=== PATIENT | male | born 1960 | race Caucasian/White ===

== ENCOUNTER 2017-11-16 01:55 | Inpatient (IN) | payer OTHER ==
[~2017-11-16] VITALS: Ht 177.8 cm; Wt 97.1 kg
[2017-11-16] MEDS ORDERED: methylPREDNISolone SOD SUCC 125 MG/2 ML ONE (02:12)
[2017-11-16 02:17] LABS: MEAN CORPUSCULAR HGB CONC 32.8 g/dL (33.2-36.2); MEAN CORPUSCULAR VOLUME 100.8 fL (81-97); MEAN PLATELET VOLUME 9.1 fL (7.4-10.4); PLATELET COUNT 309 x10^3/uL (130-400); RED BLOOD COUNT 4.89 x10^6/uL (4.38-5.82); RED CELL DISTRIBUTION WIDTH 13.6 % (9.4-14.8)
[2017-11-16 02:26] LABS: INTERNATIONAL NORMALIZED RATIO 0.96 (0.93-1.1)
[2017-11-16 02:29] LABS: ALANINE AMINOTRANSFERASE 65 U/L (12-78); ALBUMIN 3.7 g/dL (3.4-5.0); ANION GAP 11 mmol/L (5-15); CALCIUM 8.6 mg/dL (8.5-10.1); CHLORIDE 99 mmol/L (98-107); CREATININE 1.51 mg/dL (0.7-1.3)
[2017-11-16] MEDS ORDERED: SODIUM CHLORIDE 0.9% 1,000ML IVBOLUS ONE ×2 (02:30→03:00)
[2017-11-16] MEDS ORDERED: SODIUM CHLORIDE FLUSH 10ML SYR IVF ONE (02:30)
[2017-11-16] MEDS ORDERED: methylPREDNISolone SOD SUCC 125 MG/2 ML IVP ONE (02:30)
[2017-11-16 02:33] LABS: ALKALINE PHOSPHATASE 82 U/L (45-117); BILIRUBIN,TOTAL 0.4 mg/dL (0.2-1.0); TOTAL PROTEIN 8.3 g/dL (6.4-8.2)
[2017-11-16 02:41] LABS: MD YES
[2017-11-16 02:44] LABS: BAND#(MANUAL) 0.34 x10^3/uL; BANDS%(MANUAL) 2 % (0-7); BASOS#(MANUAL) 0.17 x10^3/uL (0-0.1); BASOS% (MANUAL) 1 % (0-1); EOS#(MANUAL) 0.17 x10^3/uL (0.0-0.4); EOS% (MANUAL) 1 % (1-7); LYMPH#(MANUAL) 3.06 x10^3/uL (1-3.4); LYMPHS% (MANUAL) 18 % (22-44); MONOS#(MANUAL) 1.02 x10^3/uL (0.3-2.7); MONOS% (MANUAL) 6 % (2-9); SEG#(MANUAL) 12.24 x10^3/uL (1.8-6.8); SEGS% (MANUAL) 72 % (42-75)
[2017-11-16 02:45] LABS: <PLATELET ESTIMATE> ADEQUATE; ANISOCYTOSIS 1+; LARGE PLATELETS 1+
[2017-11-16] MEDS ORDERED: PROPOFOL 100 ML IV PRN ×2 (02:45→03:41)
[2017-11-16] MEDS ORDERED: MIDAZOLAM 1 MG/ML, 2ML ONE ×2 (02:50→05:07)
[2017-11-16] MEDS ORDERED: AZITHROMYCIN 500 MG in SODIUM CHLORIDE 0.9% 250 ML IVPB ONE (03:00)
[2017-11-16] MEDS ORDERED: CEFTRIAXONE PMX 1GM/50ML 50 ML IVPB ONE (03:00)
[2017-11-16] MEDS ORDERED: SUCCINYLCHOLINE 20 MG/ML, 10ML IVPush ONE (03:00)
[2017-11-16] MEDS ORDERED: SODIUM CHLORIDE 0.9% 1,000 ML IV ONE (03:00)
[2017-11-16] MEDS ORDERED: ETOMIDATE 20 MG/10 ML IV ONE (03:00)
[2017-11-16] MEDS ORDERED: ASPIRIN 300 MG SUPP PR ONE (03:30)
[2017-11-16] MEDS ORDERED: LIDOCAINE-MPF 1%, 2ML ENDO PRN (04:00)
[2017-11-16] MEDS ORDERED: AZITHROMYCIN 500 MG in SODIUM CHLORIDE 0.9% 250 ML IV SCH (04:00)
[2017-11-16] MEDS: MIDAZOLAM 1 MG/ML, 5ML IVPush PRN ×2 (04:00→05:00)
[2017-11-16] MEDS ORDERED: SENNOSIDES 8.8 MG/5 ML ORAL SOL NG PRN (04:00)
[2017-11-16] MEDS ORDERED: SENNA/DOCUSATE TABLET NG PRN (04:00)
[2017-11-16] MEDS ORDERED: LACTULOSE 20 GM/30 ML UDC NG PRN (04:00)
[2017-11-16] MEDS ORDERED: PHARMACY MAY ADJ FOR RENAL FX MC SCH (04:00)
[2017-11-16] MEDS ORDERED: BISACODYL 10 MG SUPP PR PRN (04:00)
[2017-11-16] MEDS ORDERED: CEFTRIAXONE PMX 1GM/50ML 50 ML ONE (04:01)
[2017-11-16] MEDS: methylPREDNISolone SOD SUCC 125 MG/2 ML IV SCH ×4 (05:08→21:55)
[2017-11-16] MEDS ORDERED: ACETAMINOPHEN 325 MG TABLET PO PRN (05:30)
[2017-11-16 05:55] VITALS: BP 105/69
[2017-11-16 06:45] LABS: TROPONIN I 0.282 ng/mL (0.000-0.045)
[2017-11-16] MEDS ORDERED: PROPOFOL 10 MG/ML, 100ML IV ONE (08:00)
[2017-11-16] MEDS ORDERED: MIDAZOLAM 1 MG/ML, 5ML ONE (08:00)
[2017-11-16] MEDS ORDERED: ETOMIDATE 20 MG/10 ML ONE (08:00)
[2017-11-16] MEDS: ALBUTEROL/IPRATROPIUM 2.5MG/0.5MG, 3 ML INLINE SCH ×5 (08:00→22:41)
[2017-11-16] MEDS ORDERED: PROPOFOL 10 MG/ML, 20ML ONE (08:00)
[2017-11-16] MEDS ORDERED: SUCCINYLCHOLINE 20 MG/ML, 10ML ONE (08:00)
[2017-11-16] MEDS ORDERED: ALBUTEROL/IPRATROPIUM 2.5MG/0.5MG, 3 ML INLINE PRN (08:00)
[2017-11-16 09:05] LABS: THYROID STIMULATING HORMONE 0.839 mIU/L (0.358-3.740)
[2017-11-16] MEDS ORDERED: LOSA100T6 PO (09:32)
[2017-11-16] MEDS ORDERED: ASPI-515 PO (09:32)
[2017-11-16] MEDS ORDERED: ALBU8.5H8 INH (09:32)
[2017-11-16] MEDS ORDERED: L.AC1CAP6 PO (09:32)
[2017-11-16] MEDS ORDERED: UMEC1DIS INH (09:32)
[2017-11-16] MEDS ORDERED: METH4TAB6 PO (09:32)
[2017-11-16] MEDS ORDERED: AMOX1TAB64 PO (09:32)
[2017-11-16] MEDS: FAMOTIDINE 20 MG/2 ML IVPush SCH ×2 (10:26→20:28)
[2017-11-16] MEDS: ENOXAPARIN 40 MG/0.4 ML SQ SCH (10:26)
[2017-11-16] MEDS: MIDAZOLAM HCL 25 MG in SODIUM CHLORIDE 0.9% 245 ML IV PRN ×2 (10:27→21:56)
[2017-11-16 11:25] LABS: TROPONIN I 0.279 ng/mL (0.000-0.045)
[2017-11-17] MEDS: ALBUTEROL/IPRATROPIUM 2.5MG/0.5MG, 3 ML INLINE SCH ×6 (02:59→23:10)
[2017-11-17] MEDS: CEFTRIAXONE 1,000 MG in DEXTROSE 5% 50 ML IVPB SCH (03:54)
[2017-11-17] MEDS: MIDAZOLAM HCL 25 MG in SODIUM CHLORIDE 0.9% 245 ML IV PRN ×4 (03:54→21:16)
[2017-11-17] MEDS: methylPREDNISolone SOD SUCC 125 MG/2 ML IV SCH ×4 (03:58→22:22)
[2017-11-17 04:30] VITALS: BP 139/92
[2017-11-17] MEDS: AZITHROMYCIN 500 MG in SODIUM CHLORIDE 0.9% 250 ML IV SCH (04:45)
[2017-11-17 04:46] LABS: ANION GAP 9 mmol/L (5-15); CALCIUM 8.1 mg/dL (8.5-10.1); CHLORIDE 106 mmol/L (98-107)
[2017-11-17 04:47] LABS: CREATININE 1.47 mg/dL (0.7-1.3)
[2017-11-17 04:48] LABS: BASOPHILS % (AUTO) 0 % (0-1); EOSINOPHILS % (AUTO) 0 % (1-7); LYMPHOCYTES # (AUTO) 0.41 x10^3/uL (1-3.4); LYMPHOCYTES % (AUTO) 7 % (22-44); MD NO; MEAN CORPUSCULAR HEMOGLOBIN 33.4 pg (27.5-34.5); MEAN CORPUSCULAR HGB CONC 33.1 g/dL (33.2-36.2); MEAN PLATELET VOLUME 9.4 fL (7.4-10.4); MONOCYTES # (AUTO) 0.44 x10^3/uL (0.2-0.8); MONOCYTES % (AUTO) 7 % (2-9); NEUTROPHILS # (AUTO) 5.47 x10^3/uL (1.8-6.8); NEUTROPHILS % (AUTO) 87 % (42-75); PLATELET COUNT 175 x10^3/uL (130-400); RED BLOOD COUNT 4.07 x10^6/uL (4.38-5.82); RED CELL DISTRIBUTION WIDTH 13.5 % (9.4-14.8)
[2017-11-17] MEDS: FAMOTIDINE 20 MG/2 ML IVPush SCH ×2 (10:36→21:16)
[2017-11-17] MEDS: ENOXAPARIN 40 MG/0.4 ML SQ SCH (10:36)
[2017-11-17] MEDS: MULTIVITAMINS WITH IRON TABLET PO SCH (10:37)
[2017-11-17] MEDS ORDERED: FUROSEMIDE 40 MG/4 ML IV ONE (12:30)
[2017-11-17] MEDS: FUROSEMIDE 40 MG/4 ML IV SCH (21:16)
[2017-11-18] MEDS: ALBUTEROL/IPRATROPIUM 2.5MG/0.5MG, 3 ML INLINE SCH ×2 (01:59→06:00)
[2017-11-18] MEDS: MIDAZOLAM HCL 25 MG in SODIUM CHLORIDE 0.9% 245 ML IV PRN (02:32)
[2017-11-18] MEDS: CEFTRIAXONE 1,000 MG in DEXTROSE 5% 50 ML IVPB SCH (04:02)
[2017-11-18] MEDS: methylPREDNISolone SOD SUCC 125 MG/2 ML IV SCH ×4 (04:05→21:16)
[2017-11-18] MEDS: AZITHROMYCIN 500 MG in SODIUM CHLORIDE 0.9% 250 ML IV SCH (04:53)
[2017-11-18 04:58] LABS: BASOPHILS # (AUTO) 0.01 x10^3/uL (0-0.1); BASOPHILS % (AUTO) 0 % (0-1); EOSINOPHILS % (AUTO) 0 % (1-7); LYMPHOCYTES # (AUTO) 0.37 x10^3/uL (1-3.4); LYMPHOCYTES % (AUTO) 5 % (22-44); MD NO; MEAN CORPUSCULAR HEMOGLOBIN 32.9 pg (27.5-34.5); MEAN CORPUSCULAR HGB CONC 32.9 g/dL (33.2-36.2); MEAN PLATELET VOLUME 9.6 fL (7.4-10.4); MONOCYTES # (AUTO) 0.32 x10^3/uL (0.2-0.8); MONOCYTES % (AUTO) 4 % (2-9); NEUTROPHILS # (AUTO) 7.04 x10^3/uL (1.8-6.8); NEUTROPHILS % (AUTO) 91 % (42-75); PLATELET COUNT 205 x10^3/uL (130-400); RED BLOOD COUNT 4.35 x10^6/uL (4.38-5.82); RED CELL DISTRIBUTION WIDTH 13.1 % (9.4-14.8)
[2017-11-18 05:10] LABS: ANION GAP 10 mmol/L (5-15); CALCIUM 8.2 mg/dL (8.5-10.1); CHLORIDE 104 mmol/L (98-107)
[2017-11-18 05:12] LABS: CREATININE 1.51 mg/dL (0.7-1.3)
[2017-11-18] MEDS: ENOXAPARIN 40 MG/0.4 ML SQ SCH (08:26)
[2017-11-18] MEDS: FAMOTIDINE 20 MG/2 ML IVPush SCH ×2 (08:26→21:16)
[2017-11-18] MEDS: FUROSEMIDE 40 MG/4 ML IV SCH ×2 (08:26→16:27)
[2017-11-18] MEDS: MULTIVITAMINS WITH IRON TABLET PO SCH (08:26)
[2017-11-18] MEDS ORDERED: ALBUTEROL/IPRATROPIUM 2.5MG/0.5MG, 3 ML NPPB PRN (11:00)
[2017-11-18] MEDS ORDERED: hydrALAzine 20 MG/ML, 1ML ONE (13:25)
[2017-11-18] MEDS: ALBUTEROL/IPRATROPIUM 2.5MG/0.5MG, 3 ML NPPB SCH ×3 (14:00→22:00)
[2017-11-18] MEDS ORDERED: SODIUM CHLORIDE 0.9% IV ONE (14:30)
[2017-11-18] MEDS ORDERED: PHENOBARBITAL SODIUM IV ONE (14:30)
[2017-11-18] MEDS: hydrALAzine 20 MG/ML, 1ML IVPush PRN ×2 (14:47→19:30)
[2017-11-18] MEDS ORDERED: SODIUM CHLORIDE 0.9% IV PRN (17:30)
[2017-11-18] MEDS ORDERED: PHENOBARBITAL SODIUM IV PRN (17:30)
[2017-11-18] MEDS: LABETALOL 5MG/ML, 20ML IVPush PRN ×2 (17:36→21:36)
[2017-11-18] MEDS: PHENOBARBITAL 20 MG/5 ML ORAL SOL PO SCH (21:35)
[2017-11-19] MEDS: methylPREDNISolone SOD SUCC 125 MG/2 ML IV SCH ×3 (04:24→20:42)
[2017-11-19] MEDS: CEFTRIAXONE 1,000 MG in DEXTROSE 5% 50 ML IVPB SCH (04:24)
[2017-11-19] MEDS: LABETALOL 5MG/ML, 20ML IVPush PRN (04:31)
[2017-11-19 04:35] LABS: BASOPHILS % (AUTO) 0 % (0-1); EOSINOPHILS % (AUTO) 0 % (1-7); LYMPHOCYTES % (AUTO) 6 % (22-44); MD NO; MEAN CORPUSCULAR HEMOGLOBIN 33.7 pg (27.5-34.5); MEAN CORPUSCULAR HGB CONC 33.7 g/dL (33.2-36.2); MEAN CORPUSCULAR VOLUME 100.2 fL (81-97); MEAN PLATELET VOLUME 9.6 fL (7.4-10.4); MONOCYTES # (AUTO) 0.51 x10^3/uL (0.2-0.8); MONOCYTES % (AUTO) 6 % (2-9); NEUTROPHILS # (AUTO) 7.35 x10^3/uL (1.8-6.8); NEUTROPHILS % (AUTO) 88 % (42-75); PLATELET COUNT 203 x10^3/uL (130-400); RED BLOOD COUNT 4.54 x10^6/uL (4.38-5.82); RED CELL DISTRIBUTION WIDTH 13.6 % (9.4-14.8)
[2017-11-19 04:39] LABS: ANION GAP 6 mmol/L (5-15); CALCIUM 8.8 mg/dL (8.5-10.1); CHLORIDE 103 mmol/L (98-107); CREATININE 1.38 mg/dL (0.7-1.3); TRIGLYCERIDES 792 mg/dL (50-200)
[2017-11-19] MEDS: AZITHROMYCIN 500 MG in SODIUM CHLORIDE 0.9% 250 ML IV SCH (05:23)
[2017-11-19] MEDS: ALBUTEROL/IPRATROPIUM 2.5MG/0.5MG, 3 ML NPPB SCH (06:00)
[2017-11-19] MEDS: FOLIC ACID 1 MG TABLET PO SCH (09:29)
[2017-11-19] MEDS: THIAMINE 100MG TABLET PO SCH (09:29)
[2017-11-19] MEDS: FAMOTIDINE 20 MG/2 ML IVPush SCH ×2 (09:29→20:42)
[2017-11-19] MEDS: MULTIVITAMINS WITH IRON TABLET PO SCH (09:29)
[2017-11-19] MEDS: FUROSEMIDE 40 MG/4 ML IV SCH (09:29)
[2017-11-19] MEDS: ENOXAPARIN 40 MG/0.4 ML SQ SCH (09:30)
[2017-11-19] MEDS: PHENOBARBITAL 20 MG/5 ML ORAL SOL PO SCH ×2 (09:30→20:43)
[2017-11-19 10:53] VITALS: BP 168/94
[2017-11-19 18:27] VITALS: BP 164/81
[2017-11-19] MEDS: DIPHENHYDRAMINE 25 MG CAPSULE PO PRN (20:43)
[2017-11-20] VITALS (7 sets, daily range): BP systolic 132–170; BP diastolic 77–110
[2017-11-20] MEDS: CEFTRIAXONE 1,000 MG in DEXTROSE 5% 50 ML IVPB SCH (04:12)
[2017-11-20] MEDS: AZITHROMYCIN 500 MG in SODIUM CHLORIDE 0.9% 250 ML IV SCH (05:13)
[2017-11-20] MEDS: hydrALAzine 20 MG/ML, 1ML IVPush PRN (05:13)
[2017-11-20 05:48] LABS: ALBUMIN 2.9 g/dL (3.4-5.0); ANION GAP 6 mmol/L (5-15); CALCIUM 8.4 mg/dL (8.5-10.1); CHLORIDE 102 mmol/L (98-107)
[2017-11-20 05:52] LABS: ALANINE AMINOTRANSFERASE 42 U/L (12-78); ALKALINE PHOSPHATASE 56 U/L (45-117); BILIRUBIN,TOTAL 0.7 mg/dL (0.2-1.0); CREATININE 1.24 mg/dL (0.7-1.3); TOTAL PROTEIN 7.2 g/dL (6.4-8.2)
[2017-11-20 05:56] LABS: BASOPHILS # (AUTO) 0.02 x10^3/uL (0-0.1); BASOPHILS % (AUTO) 0 % (0-1); EOSINOPHILS # (AUTO) 0.01 x10^3/uL (0-0.4); EOSINOPHILS % (AUTO) 0 % (1-7); LYMPHOCYTES % (AUTO) 14 % (22-44); MD NO; MEAN CORPUSCULAR HEMOGLOBIN 33.7 pg (27.5-34.5); MEAN CORPUSCULAR HGB CONC 33.5 g/dL (33.2-36.2); MEAN CORPUSCULAR VOLUME 100.7 fL (81-97); MEAN PLATELET VOLUME 9.7 fL (7.4-10.4); MONOCYTES # (AUTO) 0.84 x10^3/uL (0.2-0.8); MONOCYTES % (AUTO) 10 % (2-9); NEUTROPHILS # (AUTO) 6.59 x10^3/uL (1.8-6.8); NEUTROPHILS % (AUTO) 76 % (42-75); PLATELET COUNT 195 x10^3/uL (130-400); RED BLOOD COUNT 4.84 x10^6/uL (4.38-5.82); RED CELL DISTRIBUTION WIDTH 13.2 % (9.4-14.8)
[2017-11-20] MEDS ORDERED: PHENOBARBITAL 30 MG TABLET ONE (08:35)
[2017-11-20] MEDS: PHENOBARBITAL 20 MG/5 ML ORAL SOL PO SCH ×2 (09:00→21:14)
[2017-11-20] MEDS ORDERED: REGADENOSON 0.4 MG/5 ML SYRINGE ONE (09:08)
[2017-11-20] MEDS ORDERED: AMINOPHYLLINE 25 MG/ML, 10ML ONE (09:15)
[2017-11-20] MEDS: THIAMINE 100MG TABLET PO SCH (09:59)
[2017-11-20] MEDS: methylPREDNISolone SOD SUCC 125 MG/2 ML IV SCH ×2 (09:59→21:14)
[2017-11-20] MEDS: MULTIVITAMINS WITH IRON TABLET PO SCH (09:59)
[2017-11-20] MEDS: FOLIC ACID 1 MG TABLET PO SCH (10:00)
[2017-11-20] MEDS: ENOXAPARIN 40 MG/0.4 ML SQ SCH (10:01)
[2017-11-20] MEDS: FUROSEMIDE 20 MG TABLET PO SCH (10:06)
[2017-11-20] MEDS: METOPROLOL TARTRATE 25 MG TABLET PO SCH (18:08)
[2017-11-20] MEDS: DIPHENHYDRAMINE 25 MG CAPSULE PO PRN (21:14)
[2017-11-21] VITALS (8 sets, daily range): BP systolic 119–165; BP diastolic 71–98
[2017-11-21] MEDS: CEFTRIAXONE 1,000 MG in DEXTROSE 5% 50 ML IVPB SCH (04:03)
[2017-11-21] MEDS: METOPROLOL TARTRATE 25 MG TABLET PO SCH ×2 (05:44→17:37)
[2017-11-21] MEDS: AZITHROMYCIN 500 MG in SODIUM CHLORIDE 0.9% 250 ML IV SCH (05:44)
[2017-11-21] MEDS: methylPREDNISolone SOD SUCC 125 MG/2 ML IV SCH ×2 (09:16→20:06)
[2017-11-21] MEDS: MULTIVITAMINS WITH IRON TABLET PO SCH (09:17)
[2017-11-21] MEDS: FOLIC ACID 1 MG TABLET PO SCH (09:17)
[2017-11-21] MEDS: FUROSEMIDE 20 MG TABLET PO SCH (09:17)
[2017-11-21] MEDS: ENOXAPARIN 40 MG/0.4 ML SQ SCH (09:17)
[2017-11-21] MEDS: PHENOBARBITAL 20 MG/5 ML ORAL SOL PO SCH ×2 (10:40→20:07)
[2017-11-21] MEDS: THIAMINE 100MG TABLET PO SCH (10:41)
[2017-11-21] MEDS: DIPHENHYDRAMINE 25 MG CAPSULE PO PRN (20:07)
[2017-11-22] VITALS (8 sets, daily range): BP systolic 132–162; BP diastolic 77–94
[2017-11-22] MEDS: CEFTRIAXONE 1,000 MG in DEXTROSE 5% 50 ML IVPB SCH (04:28)
[2017-11-22] MEDS: AZITHROMYCIN 500 MG in SODIUM CHLORIDE 0.9% 250 ML IV SCH (05:36)
[2017-11-22] MEDS: METOPROLOL TARTRATE 25 MG TABLET PO SCH ×2 (05:37→18:00)
[2017-11-22] MEDS ORDERED: REGADENOSON 0.4 MG/5 ML SYRINGE ONE (08:04)
[2017-11-22] MEDS: PHENOBARBITAL 20 MG/5 ML ORAL SOL PO SCH ×2 (11:36→19:58)
[2017-11-22] MEDS: THIAMINE 100MG TABLET PO SCH (11:36)
[2017-11-22] MEDS: FUROSEMIDE 20 MG TABLET PO SCH (11:37)
[2017-11-22] MEDS: ENOXAPARIN 40 MG/0.4 ML SQ SCH (11:37)
[2017-11-22] MEDS: FOLIC ACID 1 MG TABLET PO SCH (11:37)
[2017-11-22] MEDS: MULTIVITAMINS WITH IRON TABLET PO SCH (11:37)
[2017-11-22] MEDS: methylPREDNISolone SOD SUCC 125 MG/2 ML IV SCH (11:37)
[2017-11-22] MEDS: methylPREDNISolone SOD SUCC 40 MG/ML IV SCH ×2 (19:58→20:30)
[2017-11-22] MEDS: DIPHENHYDRAMINE 25 MG CAPSULE PO PRN (19:58)
[2017-11-23] MEDS: CEFTRIAXONE 1,000 MG in DEXTROSE 5% 50 ML IVPB SCH (04:29)
[2017-11-23 04:31] VITALS: BP 161/101
[2017-11-23] MEDS: AZITHROMYCIN 500 MG in SODIUM CHLORIDE 0.9% 250 ML IV SCH (05:31)
[2017-11-23] MEDS: METOPROLOL TARTRATE 25 MG TABLET PO SCH (05:31)
[2017-11-23 05:45] LABS: ANION GAP 3 mmol/L (5-15); CALCIUM 8.6 mg/dL (8.5-10.1); CHLORIDE 104 mmol/L (98-107)
[2017-11-23 05:51] LABS: CREATININE 0.99 mg/dL (0.7-1.3)
[2017-11-23 08:55] VITALS: BP 158/84
[2017-11-23 09:00] VITALS: BP_SYST 134; BP_SYST 152; BP_DIAS 86; BP_DIAS 94
[2017-11-23] MEDS ORDERED: FENOFIBRATE 145 MG TABLET PO SCH (09:00)
[2017-11-23] MEDS ORDERED: SODIUM CHLORIDE 0.9% 1,000 ML IV SCH (09:00)
[2017-11-23] MEDS: FOLIC ACID 1 MG TABLET PO SCH (09:23)
[2017-11-23] MEDS: PHENOBARBITAL 20 MG/5 ML ORAL SOL PO SCH ×2 (09:23→20:19)
[2017-11-23] MEDS: MULTIVITAMINS WITH IRON TABLET PO SCH (09:23)
[2017-11-23] MEDS: FUROSEMIDE 20 MG TABLET PO SCH (09:23)
[2017-11-23] MEDS: LISINOPRIL 10 MG TABLET PO SCH ×2 (09:24→20:19)
[2017-11-23] MEDS: methylPREDNISolone SOD SUCC 40 MG/ML IV SCH ×2 (09:37→20:19)
[2017-11-23] MEDS: CARVEDILOL 6.25 MG TABLET PO SCH ×2 (09:37→17:10)
[2017-11-23] MEDS ORDERED: MIDAZOLAM 1 MG/ML, 5ML ONE (10:57)
[2017-11-23] MEDS ORDERED: VERAPAMIL 2.5 MG/ML, 2ML ONE (10:57)
[2017-11-23] MEDS ORDERED: FENTANYL PF 100 MCG/2ML ONE (10:57)
[2017-11-23] MEDS ORDERED: TICAGRELOR 90 MG TABLET ONE (10:57)
[2017-11-23] MEDS ORDERED: NITROGLYCERIN 5 MG/ML, 10ML ONE (10:58)
[2017-11-23] MEDS ORDERED: BIVALIRUDIN 250 MG ONE ×2 (10:58→12:51)
[2017-11-23] MEDS ORDERED: LIDOCAINE 2%, 20ML ONE (10:58)
[2017-11-23] MEDS ORDERED: HEPARIN 1,000 UNITS/ML, 10ML ONE (10:58)
[2017-11-23] MEDS ORDERED: DIPHENHYDRAMINE 50 MG/ML, 1ML IVPush ONE (11:00)
[2017-11-23] MEDS ORDERED: DIPHENHYDRAMINE 50 MG/ML, 1ML ONE (11:16)
[2017-11-23] MEDS ORDERED: ASPIRIN 325 MG TABLET EC ONE (12:58)
[2017-11-23] MEDS ORDERED: ACETAMINOPHEN 325 MG TABLET PO PRN (13:00)
[2017-11-23] MEDS: THIAMINE 100MG TABLET PO SCH (13:20)
[2017-11-23 13:30] VITALS: BP 124/87
[2017-11-23 14:25] VITALS: BP 124/87
[2017-11-23 19:20] VITALS: BP_SYST 143; BP_SYST 154; BP_SYST 95; BP_DIAS 63; BP_DIAS 81; BP_DIAS 85
[2017-11-23] MEDS ORDERED: PHENOBARBITAL 100 MG TABLET ONE (19:54)
[2017-11-23] MEDS: DIPHENHYDRAMINE 25 MG CAPSULE PO PRN (20:19)
[2017-11-23] MEDS: ATORVASTATIN 40 MG TABLET PO SCH (20:19)
[2017-11-24 02:10] VITALS: BP 133/78
[2017-11-24] MEDS: CEFTRIAXONE 1,000 MG in DEXTROSE 5% 50 ML IVPB SCH (04:18)
[2017-11-24] MEDS ORDERED: FLU VACC QS2017-18 (36MOS+) UP/PF 0.5 ML IM-VACC ONE (04:30)
[2017-11-24 05:17] LABS: CHOL/HDL RATIO 10.1; CHOLESTEROL, TOTAL 332 mg/dL (140-239); HDL CHOL % 10 % (26-37); HDL CHOLESTEROL (DIRECT) 33 mg/dL (40-60); TRIGLYCERIDES 790 mg/dL (50-200)
[2017-11-24 05:34] LABS: HEMOGLOBIN A1C 6.7 % (4.2-6.3)
[2017-11-24] MEDS: AZITHROMYCIN 500 MG in SODIUM CHLORIDE 0.9% 250 ML IV SCH (05:40)
[2017-11-24] MEDS: CARVEDILOL 6.25 MG TABLET PO SCH ×2 (05:40→17:31)
[2017-11-24 07:53] VITALS: BP 126/67
[2017-11-24] MEDS: TICAGRELOR 90 MG TABLET PO SCH ×2 (08:05→19:57)
[2017-11-24] MEDS: FOLIC ACID 1 MG TABLET PO SCH (08:05)
[2017-11-24] MEDS: MULTIVITAMINS WITH IRON TABLET PO SCH (08:05)
[2017-11-24] MEDS: LISINOPRIL 10 MG TABLET PO SCH ×2 (08:05→19:57)
[2017-11-24] MEDS: FUROSEMIDE 20 MG TABLET PO SCH (08:05)
[2017-11-24] MEDS: ASPIRIN 81 MG TABLET EC PO SCH (08:05)
[2017-11-24] MEDS: methylPREDNISolone SOD SUCC 40 MG/ML IV SCH ×2 (08:05→19:57)
[2017-11-24] MEDS: PHENOBARBITAL 20 MG/5 ML ORAL SOL PO SCH (10:34)
[2017-11-24] MEDS ORDERED: CLOPIDOGREL 75 MG TABLET PO SCH (12:00)
[2017-11-24] MEDS: THIAMINE 100MG TABLET PO SCH (13:29)
[2017-11-24] MEDS: ENOXAPARIN 40 MG/0.4 ML SQ SCH (13:30)
[2017-11-24 14:11] VITALS: BP_SYST 161; BP_SYST 162; BP_DIAS 89; BP_DIAS 91
[2017-11-24 19:44] VITALS: BP_SYST 124; BP_SYST 127; BP_DIAS 72; BP_DIAS 83
[2017-11-24 19:46] VITALS: BP 126/76
[2017-11-24] MEDS: ATORVASTATIN 40 MG TABLET PO SCH (19:57)
[2017-11-24] MEDS: DIPHENHYDRAMINE 25 MG CAPSULE PO PRN (20:02)
[2017-11-24] MEDS ORDERED: ATOR40TA78 PO (20:14)
[2017-11-24] MEDS ORDERED: TICA90TA PO (20:14)
[2017-11-24] MEDS ORDERED: FURO20TA3 PO (20:14)
[2017-11-24] MEDS ORDERED: CARV6.2512 PO (20:14)
[2017-11-25 02:46] VITALS: BP 160/93
[2017-11-25 06:48] VITALS: BP 148/68
[2017-11-25] MEDS: ENOXAPARIN 40 MG/0.4 ML SQ SCH (07:15)
[2017-11-25] MEDS: CARVEDILOL 6.25 MG TABLET PO SCH ×2 (07:21→16:16)
[2017-11-25] MEDS: ASPIRIN 81 MG TABLET EC PO SCH (07:21)
[2017-11-25] MEDS: FOLIC ACID 1 MG TABLET PO SCH (07:21)
[2017-11-25] MEDS: LISINOPRIL 10 MG TABLET PO SCH (07:21)
[2017-11-25] MEDS: FUROSEMIDE 20 MG TABLET PO SCH (07:21)
[2017-11-25] MEDS: THIAMINE 100MG TABLET PO SCH (07:22)
[2017-11-25] MEDS: TICAGRELOR 90 MG TABLET PO SCH (07:23)
[2017-11-25] MEDS: MULTIVITAMINS WITH IRON TABLET PO SCH (07:31)
[2017-11-25] MEDS ORDERED: methylPREDNISolone SOD SUCC 40 MG/ML IV SCH (09:00)
[2017-11-25 16:00] VITALS: BP 148/78
== END 2017-11-25 17:17 | disposition home or self-care (01) | DRG 853 ==
LOC: ED 02:59 → EDIP 03:29 → CCU 04:40 → 3NE 11-19 10:36 → 5SO 11-23 10:35
PROVIDERS: ADMIT Hospitalist; ATTEND Hospitalist
PROC: 5A1945Z Respiratory Ventilation, 24-96 Consecutive Hours (ICD-10-PCS; 2017-11-16)
PROC: 5A09357 Assistance with Respiratory Ventilation, Less than 24 Consecutive Hours, Continuous Positive Airway Pressure (ICD-10-PCS; 2017-11-16)
PROC: 0BH17EZ Insertion of Endotracheal Airway into Trachea, Via Natural or Artificial Opening (ICD-10-PCS; 2017-11-16)
PROC: 02703DZ Dilation of Coronary Artery, One Artery with Intraluminal Device, Percutaneous Approach (ICD-10-PCS; principal; 2017-11-23)
PROC: 4A023N8 Measurement of Cardiac Sampling and Pressure, Bilateral, Percutaneous Approach (ICD-10-PCS; 2017-11-23)
PROC: B2111ZZ Fluoroscopy of Multiple Coronary Arteries using Low Osmolar Contrast (ICD-10-PCS; 2017-11-23)
PROC: B2151ZZ Fluoroscopy of Left Heart using Low Osmolar Contrast (ICD-10-PCS; 2017-11-23)
DX: A41.9 Sepsis, unspecified organism (principal); I21.4 Non-ST elevation (NSTEMI) myocardial infarction; J96.21 Acute and chronic respiratory failure with hypoxia; I50.23 Acute on chronic systolic (congestive) heart failure; N17.0 Acute kidney failure with tubular necrosis; I11.0 Hypertensive heart disease with heart failure; J15.9 Unspecified bacterial pneumonia; Z99.11 Dependence on respirator [ventilator] status; J96.22 Acute and chronic respiratory failure with hypercapnia; E87.2 Acidosis; F10.239 Alcohol dependence with withdrawal, unspecified; J44.0 Chronic obstructive pulmonary disease with (acute) lower respiratory infection; J44.1 Chronic obstructive pulmonary disease with (acute) exacerbation; I27.20 Pulmonary hypertension, unspecified; D75.89 Other specified diseases of blood and blood-forming organs; E53.8 Deficiency of other specified B group vitamins; E66.9 Obesity, unspecified; E78.1 Pure hyperglyceridemia; E78.5 Hyperlipidemia, unspecified; F15.90 Other stimulant use, unspecified, uncomplicated; F17.210 Nicotine dependence, cigarettes, uncomplicated; I25.10 Atherosclerotic heart disease of native coronary artery without angina pectoris; I25.5 Ischemic cardiomyopathy; I34.0 Nonrheumatic mitral (valve) insufficiency; I70.0 Atherosclerosis of aorta; R65.20 Severe sepsis without septic shock; Z79.82 Long term (current) use of aspirin; Z80.1 Family history of malignant neoplasm of trachea, bronchus and lung; Z99.81 Dependence on supplemental oxygen; Z68.30 Body mass index [BMI] 30.0-30.9, adult
CPT/HCPCS: 31500; 36415; 36600; 71045; 78452; 80048; 80053; 80061; 82607; 82746; 82803; 83036; 83605; 83735; 83880; 84100; 84145; 84443; 84478; 84484; 85025; 85610; 85730; 87040; 87070; 87081; 87205; 90686; 92928; 93005; 93017; 93306; 93460; 94002; 94003; 94640; 94660; 96361; 96374; 96375; 99156; 99157; C1769; C1876; C1894; J0456; J0583; J0696; J1644; J1650; J1940; J2250; J2560; J2704; J2785; J3010; J3490; J7620; A9502; C1725; C1887; C9898; J0280; J0330; J0360; J1200; J2920; J2930; J7030; J7050; Q0163; Q9967; S0028

== ENCOUNTER 2018-01-21 19:58 | Inpatient (IN) | payer OTHER ==
[~2018-01-21] VITALS: Ht 182.9 cm; Wt 90.4 kg
[~2018-01-21 19:58] MED LIST: ALBU8.5H8 INH; AMOX1TAB64 PO; ASPI-515 PO; ATOR40TA78 PO; CARV6.2512 PO; FURO20TA3 PO; L.AC1CAP6 PO; LOSA100T6 PO; METH4TAB6 PO; TICA90TA PO; UMEC1DIS INH
[2018-01-21] MEDS ORDERED: GLUCAGON 1 MG ONE ×3 (20:12→21:12)
[2018-01-21] MEDS ORDERED: ONDANSETRON ODT 4 MG ONE (20:21)
[2018-01-21] MEDS ORDERED: ZIPRASIDONE 20 MG INJ IM ONE (20:24)
[2018-01-21] MEDS ORDERED: SODIUM CHLORIDE FLUSH 10ML SYR IVF ONE ×2 (20:30)
[2018-01-21] MEDS ORDERED: GLUCAGON 1 MG IVPush ONE (20:30)
[2018-01-21 20:31] LABS: BASOPHILS # (AUTO) 0.07 x10^3/uL (0-0.1); BASOPHILS % (AUTO) 1 % (0-1); EOSINOPHILS # (AUTO) 0.31 x10^3/uL (0-0.4); EOSINOPHILS % (AUTO) 3 % (1-7); LYMPHOCYTES # (AUTO) 3.58 x10^3/uL (1-3.4); LYMPHOCYTES % (AUTO) 38 % (22-44); MD NO; MEAN CORPUSCULAR HEMOGLOBIN 33.2 pg (27.5-34.5); MEAN CORPUSCULAR HGB CONC 33.5 g/dL (33.2-36.2); MEAN PLATELET VOLUME 8.9 fL (7.4-10.4); MONOCYTES # (AUTO) 0.59 x10^3/uL (0.2-0.8); MONOCYTES % (AUTO) 6 % (2-9); NEUTROPHILS # (AUTO) 4.78 x10^3/uL (1.8-6.8); NEUTROPHILS % (AUTO) 51 % (42-75); PLATELET COUNT 251 x10^3/uL (130-400); RED BLOOD COUNT 3.55 x10^6/uL (4.38-5.82); RED CELL DISTRIBUTION WIDTH 14.7 % (9.4-14.8)
[2018-01-21 20:41] LABS: ALANINE AMINOTRANSFERASE 33 U/L (12-78); ALBUMIN 3.1 g/dL (3.4-5.0); ANION GAP 10 mmol/L (5-15); CALCIUM 8.1 mg/dL (8.5-10.1); CHLORIDE 105 mmol/L (98-107); SALICYLATE LEVEL 2.2 mg/dL (2.8-20.0)
[2018-01-21] MEDS ORDERED: METF500T4 PO (20:42)
[2018-01-21 20:44] LABS: ALKALINE PHOSPHATASE 67 U/L (45-117); BILIRUBIN,TOTAL 0.4 mg/dL (0.2-1.0); CREATININE 1.27 mg/dL (0.7-1.3); TOTAL PROTEIN 6.5 g/dL (6.4-8.2)
[2018-01-21 20:47] LABS: ACETAMINOPHEN < 2 mcg/mL (10-30)
[2018-01-21] MEDS ORDERED: KETAMINE 100 MG/ML, 5ML IV ONE ×5 (21:00→23:30)
[2018-01-21] MEDS ORDERED: GLUCAGON IV ONE (21:00)
[2018-01-21] MEDS ORDERED: SUCCINYLCHOLINE 20 MG/ML, 10ML ONE (21:00)
[2018-01-21] MEDS ORDERED: SUCCINYLCHOLINE 20 MG/ML, 10ML IVPush ONE (21:00)
[2018-01-21] MEDS ORDERED: MIDAZOLAM 1 MG/ML, 5ML ONE (21:00)
[2018-01-21] MEDS ORDERED: DEXTROSE 5% IV ONE (21:00)
[2018-01-21] MEDS ORDERED: GLUCAGON 1 MG IVPush PRN ×2 (21:00→21:30)
[2018-01-21] MEDS ORDERED: SODIUM CHLORIDE 0.9% 1,000ML IVBOLUS ONE (21:00)
[2018-01-21] MEDS ORDERED: PROPOFOL 10 MG/ML, 100ML IV ONE (21:00)
[2018-01-21] MEDS ORDERED: ONDANSETRON ODT 4 MG PO ONE (21:00)
[2018-01-21] MEDS ORDERED: DEXMEDETOMIDINE 200 MCG in SODIUM CHLORIDE 0.9% 48 ML IV PRN (21:30)
[2018-01-21] MEDS ORDERED: PROPOFOL 100 ML IV PRN (22:14)
[2018-01-21] MEDS ORDERED: REGULAR INSULIN 62.5 UNITS in SODIUM CHLORIDE 0.9% 249.375 ML IV PRN (22:14)
[2018-01-21] MEDS ORDERED: DEXTROSE 50%, 50ML SYRINGE IVPush ONE (22:30)
[2018-01-21] MEDS ORDERED: INSULIN REGULAR 100 UNITS/ML, 3ML VIAL IVPush ONE (22:30)
[2018-01-21] MEDS ORDERED: SENNA/DOCUSATE TABLET NG PRN (22:30)
[2018-01-21] MEDS: NOREPINEPHRINE 4 MG in SODIUM CHLORIDE 0.9% 246 ML IV PRN ×2 (22:30→22:58)
[2018-01-21] MEDS ORDERED: PHARMACY MAY ADJ FOR RENAL FX MC SCH (22:30)
[2018-01-21] MEDS ORDERED: BISACODYL 10 MG SUPP PR PRN (22:30)
[2018-01-21] MEDS ORDERED: LACTULOSE 20 GM/30 ML UDC NG PRN (22:30)
[2018-01-21] MEDS ORDERED: SENNOSIDES 8.8 MG/5 ML ORAL SOL NG PRN (22:30)
[2018-01-21] MEDS ORDERED: LIDOCAINE-MPF 1%, 2ML ENDO PRN (22:30)
[2018-01-21] MEDS ORDERED: DEXTROSE 50%, 50ML SYRINGE ONE ×2 (22:56→23:29)
[2018-01-21] MEDS ORDERED: INSULIN REGULAR 100 UNITS/ML, 3ML VIAL ONE (22:59)
[2018-01-21] MEDS: DEXTROSE 10% 1,000 ML IV SCH (23:11)
[2018-01-21] MEDS ORDERED: POTASSIUM CHLORIDE 40 MEQ in SODIUM CHLORIDE 0.9% 100 ML IV ONE (23:30)
[2018-01-21] MEDS ORDERED: REGULAR INSULIN 250 UNITS in SODIUM CHLORIDE 0.9% 247.5 ML IV PRN (23:45)
[2018-01-21] MEDS: AMPICILLIN/SULBACTAM 3 GM in SODIUM CHLORIDE 0.9% 100 ML IV SCH (23:51)
[2018-01-22] MEDS ORDERED: BISACODYL 10 MG SUPP PR PRN
[2018-01-22] MEDS ORDERED: DOCUSATE 100 MG CAPSULE PO PRN
[2018-01-22] MEDS ORDERED: POLYETHYLENE GLYCOL 17 GM PACKET PO PRN
[2018-01-22] MEDS: MIDAZOLAM HCL 50 MG in SODIUM CHLORIDE 0.9% 240 ML IV PRN ×3 (00:20→18:41)
[2018-01-22] MEDS: SODIUM CHLORIDE 0.9% 1,000 ML IV SCH ×2 (00:33→07:39)
[2018-01-22] MEDS: NOREPINEPHRINE 4 MG in SODIUM CHLORIDE 0.9% 246 ML IV PRN (00:34)
[2018-01-22 01:00] VITALS: BP 72/41
[2018-01-22] MEDS ORDERED: KETAMINE 100 MG/ML, 5ML IV ONE (01:00)
[2018-01-22] MEDS: NOREPINEPHRINE 8 MG in SODIUM CHLORIDE 0.9% 242 ML IV PRN ×3 (01:21→09:53)
[2018-01-22 01:51] LABS: ANION GAP 13 mmol/L (5-15); CALCIUM 7.9 mg/dL (8.5-10.1); CHLORIDE 105 mmol/L (98-107)
[2018-01-22] MEDS ORDERED: VASOPRESSIN 100 UNIT in SODIUM CHLORIDE 0.9% 495 ML IV PRN (02:00)
[2018-01-22] MEDS ORDERED: REGULAR INSULIN 62.5 UNITS in SODIUM CHLORIDE 0.9% 249.375 ML IV PRN (02:30)
[2018-01-22 02:55] LABS: AMPHETAMINE SCREEN, URINE Negative (Negative); BARBITURATE SCREEN, URINE Negative (Negative); BENZODIAZEPINE SCREEN, URINE Positive (Negative); CANNABINOID SCREEN, URINE Negative (Negative); COCAINE SCREEN, URINE Negative (Negative); METHADONE SCREEN, URINE Negative (Negative); OPIATE SCREEN, URINE Negative (Negative)
[2018-01-22] MEDS ORDERED: POTASSIUM CHLORIDE 40 MEQ in SODIUM CHLORIDE 0.9% 100 ML IV ONE (03:00)
[2018-01-22] MEDS: AMPICILLIN/SULBACTAM 3 GM in SODIUM CHLORIDE 0.9% 100 ML IV SCH ×4 (03:39→22:02)
[2018-01-22 04:30] VITALS: BP 93/52
[2018-01-22] MEDS ORDERED: REGULAR INSULIN 250 UNITS in SODIUM CHLORIDE 0.9% 247.5 ML IV PRN ×2 (05:30→23:45)
[2018-01-22 06:23] LABS: BASOPHILS # (AUTO) 0.11 x10^3/uL (0-0.1); BASOPHILS % (AUTO) 1 % (0-1); EOSINOPHILS # (AUTO) 0.02 x10^3/uL (0-0.4); EOSINOPHILS % (AUTO) 0 % (1-7); LYMPHOCYTES # (AUTO) 1.97 x10^3/uL (1-3.4); LYMPHOCYTES % (AUTO) 17 % (22-44); MD NO; MEAN CORPUSCULAR HEMOGLOBIN 33.2 pg (27.5-34.5); MEAN CORPUSCULAR HGB CONC 33.6 g/dL (33.2-36.2); MEAN CORPUSCULAR VOLUME 98.8 fL (81-97); MEAN PLATELET VOLUME 8.9 fL (7.4-10.4); MONOCYTES # (AUTO) 0.66 x10^3/uL (0.2-0.8); MONOCYTES % (AUTO) 6 % (2-9); NEUTROPHILS # (AUTO) 8.79 x10^3/uL (1.8-6.8); NEUTROPHILS % (AUTO) 76 % (42-75); PLATELET COUNT 292 x10^3/uL (130-400); RED CELL DISTRIBUTION WIDTH 14.8 % (9.4-14.8)
[2018-01-22 06:31] LABS: ANION GAP 11 mmol/L (5-15); CALCIUM 7.7 mg/dL (8.5-10.1); CHLORIDE 108 mmol/L (98-107); CREATININE 1.53 mg/dL (0.7-1.3)
[2018-01-22] MEDS: DEXTROSE 10% 1,000 ML IV SCH ×2 (07:39→18:42)
[2018-01-22] MEDS ORDERED: MAGNESIUM SULFATE PMX 4GM/100M 100 ML IV ONE (08:00)
[2018-01-22 08:10] LABS: ALANINE AMINOTRANSFERASE 31 U/L (12-78); ALBUMIN 2.8 g/dL (3.4-5.0); BILIRUBIN, DIRECT 0.2 mg/dL (0.1-0.2)
[2018-01-22 08:12] LABS: ACETAMINOPHEN < 2 mcg/mL (10-30); ALKALINE PHOSPHATASE 61 U/L (45-117); BILIRUBIN,TOTAL 0.7 mg/dL (0.2-1.0); SALICYLATE LEVEL < 1.7 mg/dL (2.8-20.0); TOTAL PROTEIN 6.1 g/dL (6.4-8.2)
[2018-01-22 09:29] LABS: BILIRUBIN,INDIRECT 0.5 mg/dL (0.0-2.0)
[2018-01-22] MEDS ORDERED: DEXTROSE 50%, 50ML SYRINGE IVPush PRN (10:00)
[2018-01-22] MEDS ORDERED: [UNRECOGNIZED DRUG - REMARK] XX PRN ×2 (10:00→14:32)
[2018-01-22] MEDS ORDERED: DEXTROSE 4 GM TAB.CHEW PO PRN (10:00)
[2018-01-22] MEDS ORDERED: GLUCAGON 1 MG IM PRN (10:00)
[2018-01-22] MEDS ORDERED: DEXTROSE 50%, 50ML SYRINGE IVPush ONE (10:00)
[2018-01-22 10:01] LABS: ANION GAP 10 mmol/L (5-15); CALCIUM 7.5 mg/dL (8.5-10.1); CHLORIDE 107 mmol/L (98-107); CREATININE 1.49 mg/dL (0.7-1.3)
[2018-01-22] MEDS ORDERED: SODIUM CHLORIDE 0.9%, 500ML IVBOLUS ONE (10:30)
[2018-01-22 10:49] LABS: CLOSTRIDIUM DIFFICILE ANTIGEN NEGATIVE; CLOSTRIDIUM DIFFICILE TOXIN NEGATIVE (Negative)
[2018-01-22] MEDS: SODIUM CHLORIDE FLUSH 10ML SYR IVF SCH ×2 (10:59→22:02)
[2018-01-22] MEDS ORDERED: NOREPINEPHRINE 8 MG in SODIUM CHLORIDE 0.9% 242 ML IV PRN (14:30)
[2018-01-22] MEDS ORDERED: SODIUM CHLORIDE 0.9% 1,000 ML IV SCH (14:30)
[2018-01-22] MEDS ORDERED: DEXTROSE 10% 1,000 ML IV SCH (22:30)
[2018-01-23] MEDS: MIDAZOLAM HCL 50 MG in SODIUM CHLORIDE 0.9% 240 ML IV PRN ×2 (00:58→07:59)
[2018-01-23] MEDS: AMPICILLIN/SULBACTAM 3 GM in SODIUM CHLORIDE 0.9% 100 ML IV SCH ×4 (03:57→22:36)
[2018-01-23 04:30] LABS: ANION GAP 9 mmol/L (5-15); CALCIUM 6.8 mg/dL (8.5-10.1); CHLORIDE 103 mmol/L (98-107); CREATININE 1.32 mg/dL (0.7-1.3)
[2018-01-23 04:32] LABS: BASOPHILS # (AUTO) 0.09 x10^3/uL (0-0.1); BASOPHILS % (AUTO) 1 % (0-1); EOSINOPHILS # (AUTO) 0.17 x10^3/uL (0-0.4); EOSINOPHILS % (AUTO) 2 % (1-7); LYMPHOCYTES # (AUTO) 1.06 x10^3/uL (1-3.4); LYMPHOCYTES % (AUTO) 12 % (22-44); MD NO; MEAN CORPUSCULAR HEMOGLOBIN 33.7 pg (27.5-34.5); MEAN CORPUSCULAR HGB CONC 33.8 g/dL (33.2-36.2); MEAN CORPUSCULAR VOLUME 99.7 fL (81-97); MEAN PLATELET VOLUME 8.9 fL (7.4-10.4); MONOCYTES # (AUTO) 0.74 x10^3/uL (0.2-0.8); MONOCYTES % (AUTO) 8 % (2-9); NEUTROPHILS # (AUTO) 7.15 x10^3/uL (1.8-6.8); NEUTROPHILS % (AUTO) 78 % (42-75); PLATELET COUNT 254 x10^3/uL (130-400); RED BLOOD COUNT 3.26 x10^6/uL (4.38-5.82); RED CELL DISTRIBUTION WIDTH 14.7 % (9.4-14.8)
[2018-01-23 05:58] VITALS: BP 102/61
[2018-01-23] MEDS ORDERED: MAGNESIUM SULFATE PMX 4GM/100M 100 ML IV ONE (08:00)
[2018-01-23] MEDS: POTASSIUM CHLORIDE 10% 40 MEQ/30 ML UDC PO SCH ×2 (08:09→21:05)
[2018-01-23] MEDS: SODIUM CHLORIDE FLUSH 10ML SYR IVF SCH ×2 (08:10→21:06)
[2018-01-23] MEDS: CHLORDIAZEPOXIDE 25 MG CAPSULE PO SCH ×3 (10:16→21:05)
[2018-01-23] MEDS ORDERED: ALBUTEROL SULFATE 2.5 MG/3 ML NPPB PRN (13:30)
[2018-01-23] MEDS ORDERED: ERGOCALCIFEROL 50,000 UNIT CAPSULE PO SCH (16:00)
[2018-01-23] MEDS: DEXTROSE 10% 1,000 ML IV SCH (16:24)
[2018-01-23] MEDS: ENOXAPARIN 40 MG/0.4 ML SQ SCH (16:30)
[2018-01-23] MEDS ORDERED: hydrALAzine 20 MG/ML, 1ML IV PRN (18:00)
[2018-01-24] MEDS: AMPICILLIN/SULBACTAM 3 GM in SODIUM CHLORIDE 0.9% 100 ML IV SCH ×4 (04:14→21:48)
[2018-01-24 05:00] VITALS: BP 157/69
[2018-01-24 06:14] LABS: BASOPHILS % (AUTO) 1 % (0-1); EOSINOPHILS # (AUTO) 0.17 x10^3/uL (0-0.4); EOSINOPHILS % (AUTO) 2 % (1-7); LYMPHOCYTES # (AUTO) 1.12 x10^3/uL (1-3.4); LYMPHOCYTES % (AUTO) 14 % (22-44); MD NO; MEAN CORPUSCULAR HGB CONC 33.4 g/dL (33.2-36.2); MEAN CORPUSCULAR VOLUME 98.6 fL (81-97); MEAN PLATELET VOLUME 9.1 fL (7.4-10.4); MONOCYTES # (AUTO) 0.92 x10^3/uL (0.2-0.8); MONOCYTES % (AUTO) 11 % (2-9); NEUTROPHILS # (AUTO) 5.79 x10^3/uL (1.8-6.8); NEUTROPHILS % (AUTO) 72 % (42-75); PLATELET COUNT 207 x10^3/uL (130-400); RED BLOOD COUNT 3.32 x10^6/uL (4.38-5.82); RED CELL DISTRIBUTION WIDTH 14.9 % (9.4-14.8)
[2018-01-24 06:24] LABS: ANION GAP 8 mmol/L (5-15); CALCIUM 8.3 mg/dL (8.5-10.1); CHLORIDE 107 mmol/L (98-107)
[2018-01-24 06:27] LABS: TRIGLYCERIDES 251 mg/dL (50-200)
[2018-01-24] MEDS: CHLORDIAZEPOXIDE 25 MG CAPSULE PO SCH ×3 (09:14→21:48)
[2018-01-24] MEDS: SODIUM CHLORIDE FLUSH 10ML SYR IVF SCH ×2 (09:15→21:49)
[2018-01-24 14:49] VITALS: BP 160/80
[2018-01-24] MEDS: ENOXAPARIN 40 MG/0.4 ML SQ SCH (16:00)
[2018-01-24 18:30] VITALS: BP 150/87
[2018-01-24] MEDS ORDERED: DIPHENHYDRAMINE 50 MG CAPSULE PO ONE (22:30)
[2018-01-25 01:51] VITALS: BP 169/85
[2018-01-25] MEDS: AMPICILLIN/SULBACTAM 3 GM in SODIUM CHLORIDE 0.9% 100 ML IV SCH ×2 (04:28→12:58)
[2018-01-25 05:33] LABS: CHLORIDE 108 mmol/L (98-107)
[2018-01-25 05:39] LABS: ANION GAP 9 mmol/L (5-15)
[2018-01-25 05:42] LABS: BASOPHILS # (AUTO) 0.05 x10^3/uL (0-0.1); BASOPHILS % (AUTO) 1 % (0-1); EOSINOPHILS # (AUTO) 0.21 x10^3/uL (0-0.4); EOSINOPHILS % (AUTO) 3 % (1-7); LYMPHOCYTES # (AUTO) 1.44 x10^3/uL (1-3.4); LYMPHOCYTES % (AUTO) 17 % (22-44); MD NO; MEAN CORPUSCULAR HEMOGLOBIN 33.4 pg (27.5-34.5); MEAN CORPUSCULAR HGB CONC 33.4 g/dL (33.2-36.2); MEAN CORPUSCULAR VOLUME 99.9 fL (81-97); MEAN PLATELET VOLUME 9.5 fL (7.4-10.4); MONOCYTES # (AUTO) 0.81 x10^3/uL (0.2-0.8); MONOCYTES % (AUTO) 10 % (2-9); NEUTROPHILS # (AUTO) 5.85 x10^3/uL (1.8-6.8); NEUTROPHILS % (AUTO) 70 % (42-75); PLATELET COUNT 196 x10^3/uL (130-400); RED BLOOD COUNT 3.45 x10^6/uL (4.38-5.82); RED CELL DISTRIBUTION WIDTH 14.9 % (9.4-14.8)
[2018-01-25 07:56] VITALS: BP 161/77
[2018-01-25] MEDS: CHLORDIAZEPOXIDE 25 MG CAPSULE PO SCH (09:18)
[2018-01-25] MEDS: SODIUM CHLORIDE FLUSH 10ML SYR IVF SCH ×2 (09:18→22:08)
[2018-01-25 13:53] VITALS: BP_SYST 163; BP_SYST 99; BP_DIAS 63; BP_DIAS 82
[2018-01-25] MEDS: ENOXAPARIN 40 MG/0.4 ML SQ SCH (16:00)
[2018-01-25 19:18] VITALS: BP 138/77
[2018-01-26 01:57] VITALS: BP 152/76
[2018-01-26 06:15] LABS: BASOPHILS # (AUTO) 0.06 x10^3/uL (0-0.1); BASOPHILS % (AUTO) 1 % (0-1); EOSINOPHILS # (AUTO) 0.27 x10^3/uL (0-0.4); EOSINOPHILS % (AUTO) 3 % (1-7); LYMPHOCYTES # (AUTO) 1.72 x10^3/uL (1-3.4); LYMPHOCYTES % (AUTO) 21 % (22-44); MD NO; MEAN PLATELET VOLUME 9.9 fL (7.4-10.4); MONOCYTES # (AUTO) 0.94 x10^3/uL (0.2-0.8); MONOCYTES % (AUTO) 12 % (2-9); NEUTROPHILS # (AUTO) 5.11 x10^3/uL (1.8-6.8); NEUTROPHILS % (AUTO) 63 % (42-75); PLATELET COUNT 209 x10^3/uL (130-400); RED BLOOD COUNT 3.47 x10^6/uL (4.38-5.82)
[2018-01-26 06:27] LABS: ANION GAP 10 mmol/L (5-15); CHLORIDE 107 mmol/L (98-107)
[2018-01-26 06:59] LABS: CALCIUM 9.2 mg/dL (8.5-10.1); CREATININE 0.94 mg/dL (0.7-1.3); FOLATE LEVEL 13.3 ng/mL (3.1-17.5)
[2018-01-26 07:02] VITALS: BP 131/75
[2018-01-26] MEDS: SODIUM CHLORIDE FLUSH 10ML SYR IVF SCH ×2 (09:00→20:20)
[2018-01-26 12:47] VITALS: BP 112/72
[2018-01-26] MEDS: ENOXAPARIN 40 MG/0.4 ML SQ SCH (16:00)
[2018-01-26 19:26] VITALS: BP 129/68
[2018-01-27 02:32] VITALS: BP 99/62
[2018-01-27 05:40] LABS: BASOPHILS # (AUTO) 0.06 x10^3/uL (0-0.1); BASOPHILS % (AUTO) 1 % (0-1); EOSINOPHILS % (AUTO) 4 % (1-7); LYMPHOCYTES # (AUTO) 1.91 x10^3/uL (1-3.4); LYMPHOCYTES % (AUTO) 25 % (22-44); MD NO; MEAN CORPUSCULAR HEMOGLOBIN 33.2 pg (27.5-34.5); MEAN CORPUSCULAR HGB CONC 33.5 g/dL (33.2-36.2); MEAN PLATELET VOLUME 9.6 fL (7.4-10.4); MONOCYTES # (AUTO) 1.02 x10^3/uL (0.2-0.8); MONOCYTES % (AUTO) 13 % (2-9); NEUTROPHILS % (AUTO) 57 % (42-75); PLATELET COUNT 228 x10^3/uL (130-400); RED BLOOD COUNT 3.28 x10^6/uL (4.38-5.82); RED CELL DISTRIBUTION WIDTH 14.6 % (9.4-14.8)
[2018-01-27 05:49] LABS: ANION GAP 8 mmol/L (5-15); CHLORIDE 108 mmol/L (98-107)
[2018-01-27 05:52] LABS: CREATININE 1.01 mg/dL (0.7-1.3); TRIGLYCERIDES 178 mg/dL (50-200)
[2018-01-27 06:40] VITALS: BP 108/68
[2018-01-27] MEDS: SODIUM CHLORIDE FLUSH 10ML SYR IVF SCH ×2 (11:14→19:40)
[2018-01-27 12:10] VITALS: BP 123/75
[2018-01-27] MEDS: ENOXAPARIN 40 MG/0.4 ML SQ SCH (16:53)
[2018-01-27 19:26] VITALS: BP 127/62
[2018-01-28 01:18] VITALS: BP 111/61
[2018-01-28 06:23] VITALS: BP 110/65
[2018-01-28] MEDS: SODIUM CHLORIDE FLUSH 10ML SYR IVF SCH ×2 (09:00→19:32)
[2018-01-28 14:00] VITALS: BP 122/74
[2018-01-28] MEDS: ENOXAPARIN 40 MG/0.4 ML SQ SCH (15:41)
[2018-01-28 19:29] VITALS: BP 147/77
[2018-01-29 02:00] VITALS: BP 116/64
[2018-01-29] MEDS: SODIUM CHLORIDE FLUSH 10ML SYR IVF SCH (09:00)
[2018-01-29 09:40] VITALS: BP 110/68
[2018-01-29] MEDS: ENOXAPARIN 40 MG/0.4 ML SQ SCH (16:00)
== END 2018-01-29 17:52 | disposition home or self-care (01) | DRG 917 ==
LOC: ED 21:10 → EDIP 21:56 → CCU 01-22 00:48 → 3NE 01-24 14:05
PROVIDERS: ADMIT Internal Medicine; ATTEND Internal Medicine
PROC: 5A1945Z Respiratory Ventilation, 24-96 Consecutive Hours (ICD-10-PCS; principal; 2018-01-21)
PROC: 0BH17EZ Insertion of Endotracheal Airway into Trachea, Via Natural or Artificial Opening (ICD-10-PCS; 2018-01-21)
PROC: 02HV33Z Insertion of Infusion Device into Superior Vena Cava, Percutaneous Approach (ICD-10-PCS; 2018-01-22)
PROC: B548ZZA Ultrasonography of Superior Vena Cava, Guidance (ICD-10-PCS; 2018-01-22)
DX: T50.902A Poisoning by unspecified drugs, medicaments and biological substances, intentional self-harm, initial encounter (principal); G92 Toxic encephalopathy; J96.00 Acute respiratory failure, unspecified whether with hypoxia or hypercapnia; R57.0 Cardiogenic shock; E44.0 Moderate protein-calorie malnutrition; J44.1 Chronic obstructive pulmonary disease with (acute) exacerbation; D53.9 Nutritional anemia, unspecified; I50.9 Heart failure, unspecified; E11.69 Type 2 diabetes mellitus with other specified complication; E66.9 Obesity, unspecified; E78.5 Hyperlipidemia, unspecified; T14.91XA Suicide attempt, initial encounter; Y90.8 Blood alcohol level of 240 mg/100 ml or more; I25.5 Ischemic cardiomyopathy; I25.10 Atherosclerotic heart disease of native coronary artery without angina pectoris; F10.129 Alcohol abuse with intoxication, unspecified; F32.9 Major depressive disorder, single episode, unspecified; F15.21 Other stimulant dependence, in remission; I11.0 Hypertensive heart disease with heart failure; Z99.81 Dependence on supplemental oxygen; Z95.5 Presence of coronary angioplasty implant and graft; Z99.11 Dependence on respirator [ventilator] status; Z91.5 Personal history of self-harm; Z87.01 Personal history of pneumonia (recurrent); Z79.84 Long term (current) use of oral hypoglycemic drugs; Z80.1 Family history of malignant neoplasm of trachea, bronchus and lung; I25.2 Old myocardial infarction; Y92.89 Other specified places as the place of occurrence of the external cause; Z79.82 Long term (current) use of aspirin; Z79.899 Other long term (current) drug therapy; Z68.27 Body mass index [BMI] 27.0-27.9, adult
CPT/HCPCS: 31500; 36415; 36569; 36600; 71045; 80048; 80053; 80076; 80307; 80329; 82306; 82330; 82607; 82746; 82803; 82962; 83605; 83735; 83970; 84478; 85025; 87070; 87081; 87205; 87324; 93005; 94002; 94003; 94150; 96365; 96366; 96368; 96375; 99291; J0295; J1650; J1815; J2250; J2704; J3480; G0480; J0330; J0360; J1610; J3475; J7030; J7040; J7050